=== PATIENT | male | born 1945 | race Caucasian/White ===

== ENCOUNTER → 2016-11-21 | Outpatient (CLI) | payer BC ==
[~2016-11-21] MED LIST: ACYC-251 PO; ALBUAER19 INH; ATOR10TA88 PO; BETACAROTENE PO; BIMA0.01 OPB; CHOL400T PO; CLON1TAB3 PO; CO Q 10 PO; GLUCOSAMINE PO; HYDR-3983 PO; LETHICIN PO; OMEG10007 PO; SERT1TAB68 PO; ZINC PO; [UNRECOGNIZED DRUG - OTHER] PO; [UNRECOGNIZED DRUG - OTHER] PO
[2016-11-21 10:59] LABS: ALT/SGPT 35 U/L (12-78); AST/SGOT 19 U/L (15-37); BLOOD UREA NITROGEN 16 mg/dl (7-18); BUN/CREATININE RATIO 17.6 (10-20); CALCIUM 8.8 mg/dl (8.5-10.1); CARBON DIOXIDE 30 mmol/L (21-32); CHLORIDE 106 mmol/L (98-107); GLUCOSE 91 mg/dl (70-99); POTASSIUM 4.2 mmol/L (3.5-5.1); SODIUM 137 mmol/L (136-145)
[2016-11-21 11:01] LABS: ALB/GLOB RATIO 1.3 (0.9-2); ALKALINE PHOSPHATASE 67 U/L (45-117); CHOLESTEROL 174 mg/dl (0-200); CHOLESTEROL/HDL RATIO 3.9; HDL CHOLESTEROL 45 mg/dl; LDL CHOLESTEROL CALCULATED 77 mg/dl; TRIGLYCERIDES 260 mg/dl (0-150); VERY LOW DENSITY LIPOPROT CALC 52 mg/dl
== END | disposition home or self-care (01) ==
LOC: C.LAB1850 09:14
PROVIDERS: ATTEND Nurse Practitioner Family
DX: E78.5 Hyperlipidemia, unspecified (principal); K21.9 Gastro-esophageal reflux disease without esophagitis; E55.9 Vitamin D deficiency, unspecified

== ENCOUNTER → 2017-01-15 | Outpatient (CLI) | payer BC | END | disposition home or self-care (01) | LOC: C.LAB1850 14:05 | PROVIDERS: ATTEND Urology | DX: N40.3 Nodular prostate with lower urinary tract symptoms (principal) ==

== ENCOUNTER 2017-03-09 08:20 | Observation (INO) | payer BC ==
[2017-02-19 08:58] VITALS: BMI 26.0
--- NOTE | 2017-02-19 09:30 | PAT Medication Instructions ---
Service Date Feb 19, 2017. Current Home Medication List Acetaminophen (Tylenol), 500-750 MG PO PRN Acyclovir (Zovirax), 800 MG PO TID PRN Albuterol Hfa (Ventolin Hfa), 1-2 PUFFS INH PRN Alprazolam (Xanax), 0.25 MG PO BID PRN for RN Ampicillin (Ampicillin), 500 MG PO UD Atorvastatin (Lipitor), 10 MG PO HS Brimonidine Tartrate (Alphagan P Oph), 1 DROP OP Q12H Ergocalciferol (Vitamin D 16346 Unit), 1 TAB PO WK Fish Oil ([employer] [place]-3), 1 CAP PO BID Probiotic Product (Probiotic), 1 TAB PO QPM Ranitidine (Zantac), 150 MG PO BID PRN for PRN Sertraline Hcl (Zoloft), 50 MG PO HS Timolol Maleate (Ophth) (Timoptic), 1 DROP OPB Q12H Tramadol (Ultram), 5-100 MG PO Q4H PRN for RN [Betacarotene], 1 TAB PO PRN [Co Q 10], 1 TAB PO QAM [Glucosamine], 1 TAB PO QAM [Glutamine], 1 TAB PO QAM [Lethicin], 1 TAB PO PRN [Resvertrol], 1 TAB PO QAM [Zinc], 1 TAB PO PRN Medication Instructions For Your Scheduled Surgery - Hold the following medications 2 weeks prior to surgery: [Betacarotene], 1 TAB PO PRN [Co Q 10], 1 TAB PO QAM [Glucosamine], 1 TAB PO QAM [Glutamine], 1 TAB PO QAM [Lethicin], 1 TAB PO PRN [Resvertrol], 1 TAB PO QAM Fish Oil ([employer] [place]-3), 1 CAP PO BID - Hold the following medications the morning of surgery: [Zinc], 1 TAB PO PRN - Take the following medications the morning of surgery with a sip of water OTHERWISE NOTHING TO EAT OR DRINK AFTER MIDNIGHT: Timolol Maleate (Ophth) (Timoptic), 1 DROP OPB Q12H Tramadol (Ultram), 5-100 MG PO Q4H PRN (may take if needed up to 4 hours prior to surgery) Brimonidine Tartrate (Alphagan P Oph), 1 DROP OP Q12H Albuterol Hfa (Ventolin Hfa), 1-2 PUFFS INH PRN (use if needed; BRING TO HOSPITAL) Alprazolam (Xanax), 0.25 MG PO BID PRN Acetaminophen (Tylenol), 500-750 MG PO PRN (may take if needed up to 4 hours prior to surgery) Acyclovir (Zovirax), 800 MG PO TID PRN Ranitidine (Zantac), 150 MG PO BID PRN for PRN - Take the following medications as scheduled the night before surgery: Atorvastatin (Lipitor), 10 MG PO HS Timolol Maleate (Ophth) (Timoptic), 1 DROP OPB Q12H Tramadol (Ultram), 5-100 MG PO Q4H PRN for RN Brimonidine Tartrate (Alphagan P Oph), 1 DROP OP Q12H Albuterol Hfa (Ventolin Hfa), 1-2 PUFFS INH PRN Alprazolam (Xanax), 0.25 MG PO BID PRN Acetaminophen (Tylenol), 500-750 MG PO PRN Acyclovir (Zovirax), 800 MG PO TID PRN Sertraline Hcl (Zoloft), 50 MG PO HS Probiotic Product (Probiotic), 1 TAB PO QPM Ranitidine (Zantac), 150 MG PO BID PRN for PRN If you have any questions please call us at [phone] or [phone] or [phone]
[2017-02-19 10:36] LABS: BASO % 0.3 %; BASO ABS # 0.02 K/uL (0-0.2); COMPLETE YES; EOS % 6.1 %; HEMATOCRIT 39.7 % (42-52); IG% 0.3 %; LYMPH % 35.5 %; LYMPH ABS # 2.11 K/uL (1.2-3.4); MEAN CELL VOLUME 85.9 fL (80-100); MEAN CORPUSCULAR HEMOGLOBIN 28.6 pg (25-34); MEAN CORPUSCULAR HGB CONC 33.2 g/dl (32-36); MEAN PLATELET VOLUME 9.7 fL (7.4-10.4); MONO % 7.2 %; NEUT % 50.6 %; PLATELET COUNT 214 K/uL (130-400); RED BLOOD COUNT 4.62 M/uL (4.7-6.1); WHITE BLOOD COUNT 5.94 K/uL (4.8-10.8)
[2017-02-19 10:45] LABS: BUN/CREATININE RATIO 18.2 (10-20); CALCIUM 8.7 mg/dl (8.5-10.1); CREATININE 0.91 mg/dl (0.60-1.40); POTASSIUM 3.8 mmol/L (3.5-5.1)
[~2017-03-09] VITALS: Ht 172.7 cm; Wt 78.6 kg
[~2017-03-09 08:20] MED LIST changes: +ACET-1256 PO; +ACYC-223 PO; -ACYC-251 PO; -ALBUAER19 INH; +ALPR-411 PO; +AMPI500C9 PO; +ATOR10TA82 PO; -ATOR10TA88 PO; -BIMA0.01 OPB; +BRIM0.1S OP; +CEFAZOLIN 2000MG IV PUSH 10 ML IV SCH; -CHOL400T PO; -CLON1TAB3 PO; +ERGO500011 PO; +GLUTAMINE PO; -HYDR-3983 PO; +LACTATED RINGER'S 1000ML 1,000 ML IV SCH; +MISCCAP80 PO; +TIMO0.2528 OPB; +TRAM-10 PO; +VNTHFA/IN INH; +ZNTT/150 PO; +[UNRECOGNIZED DRUG - OTHER] PO; -[UNRECOGNIZED DRUG - OTHER] PO; -[UNRECOGNIZED DRUG - OTHER] PO
[2017-03-09 08:44] VITALS: BP 116/69; PULSE 64; TEMP 36.7; O2SAT 97; Ht 172.7 cm; Wt 78.6 kg
[2017-03-09] MEDS ORDERED: PROPOFOL IV EMULSION 10 MG/ML 20 ML VIAL IV ONE (09:58)
[2017-03-09] MEDS ORDERED: LIDOCAINE HCL 2% 2 ML VIAL (20MG/ML) ONE (09:58)
[2017-03-09] MEDS ORDERED: ONDANSETRON INJ 2 MG/ML 2 ML VIAL ONE (09:58)
[2017-03-09] MEDS ORDERED: DEXAMETHASONE SOD INJ 4 MG/ML VIAL ONE (09:58)
[2017-03-09] MEDS ORDERED: FENTANYL CITRATE INJ 50 MCG/1 ML 2 ML VIAL ONE (09:59)
[2017-03-09] MEDS ORDERED: MIDAZOLAM HCL 1 MG/ML 2ML VIAL ONE (09:59)
[2017-03-09] MEDS ORDERED: MEPERIDINE HCL 25 MG/ML CARP IV PRN (10:00)
[2017-03-09] MEDS ORDERED: ATROPINE SULFATE 0.1 MG/ML 5ML SYR IV PRN (10:00)
[2017-03-09] MEDS ORDERED: EpHEDrine SULFATE INJ 50 MG/ML AMP IV PRN (10:00)
[2017-03-09] MEDS ORDERED: HYDROmorphone INJ 1 MG/ML SYR IV PRN (10:00)
[2017-03-09] MEDS ORDERED: LABETALOL HCL IV 5 MG/ML 20ML IV PRN (10:00)
[2017-03-09] MEDS ORDERED: ONDANSETRON INJ 2 MG/ML 2 ML VIAL IV PRN ×2 (10:00→13:00)
[2017-03-09] MEDS ORDERED: FENTANYL CITRATE INJ 50 MCG/1 ML 2 ML VIAL IV PRN (10:00)
--- NOTE | 2017-03-09 10:00 | History & Physical Bridge Note ---
H&P Re-Evaluation Bridge Note: I have examined the patient, reviewed the History & Physical and in the interval since the performance of the History & Physical I have noted the following changes of clinical significance: No changes noted
[2017-03-09] MEDS ORDERED: CEFAZOLIN SOD 1 GM VIAL ONE (11:12)
[2017-03-09] MEDS ORDERED: LIDOCAINE HCL 1% 20 ML VIAL ONE (11:12)
[2017-03-09] MEDS ORDERED: BUPIVACAINE 0.5 % 5 MG/1 ML MPF 30ML VIAL ONE (11:12)
[2017-03-09] MEDS ORDERED: MoRPHine SULFATE 4 MG/ML 1 ML CARP\\VIAL IV PRN (13:00)
[2017-03-09] MEDS ORDERED: ALPRAZOLAM 0.25 MG TAB PO PRN (13:00)
[2017-03-09] MEDS ORDERED: ALBUTEROL HFA 8 GM INHALER INH PRN (13:00)
[2017-03-09] MEDS ORDERED: MoRPHine SULFATE 2 MG/ML CARP IV PRN (13:00)
[2017-03-09] MEDS ORDERED: PROMETHAZINE HCL INJ 25 MG in SODIUM CHLORIDE 0.9% 50ML 50 ML IV PRN (13:00)
[2017-03-09] MEDS ORDERED: HYDROCODONE/ACETAMOPHEN 5/325MG TAB PO PRN (13:00)
--- NOTE | 2017-03-09 13:08 | [facility] Operative Report ---
Operative Report Operative Date Mar 09, 2017. Pre-Operative Diagnosis Left Recurrent Inguinal Hernia Post-Operative Diagnosis Same as preop Procedure(s) Performed Left Laparoscopic Recurrent Inguinal Hernia Repair Surgeon Dr. Cortés Offline Editor Surgeon(s) Walter Walker PA-C Estimated Blood Loss 20 ml Findings direct and indirect defects w/ lipomas Specimens None per surgeon Anesthesia gen Complication(s) None Disposition Recovery Room / PACU I attest to the content of the Intraoperative Record and any orders documented therein. Any exceptions are noted below.
--- NOTE | 2017-03-09 13:38 | OPERATIVE REPORT ---
DATE OF OPERATION: 03/09/2017 NAME OF OPERATION: Laparoscopic repair of recurrent left inguinal hernia. PREOPERATIVE DIAGNOSIS: Recurrent left inguinal hernia. POSTOPERATIVE DIAGNOSIS: Same. STAFF SURGEON: Dr. John Cortés. ELECTRIC RAZOR MECHANIC: Walter Walker PA-C. ANESTHESIA: General. FINDINGS: The patient had a recurrent left inguinal hernia with large direct defect and smaller indirect defect with lipomas. DESCRIPTION OF PROCEDURE: The patient was brought into the operating room and placed on the operating table in the supine position. His abdomen was prepped and draped in the usual fashion. De Luna catheter, pneumatic stockings and orogastric tube were placed. Initially, incision was made in the right mid abdomen, carrying dissection down, identifying the fascia, placing a Veress needle, and producing pneumoperitoneum. This was because the patient had had prior mesh placed in the mid abdomen. Then, a 5-mm port was placed. A 5-mm scope was used. A second 5-mm port placed in the left mid abdomen and then an 11-mm port placed in the central abdomen above the area of the mesh. On inspection, the patient did have what appeared to be a direct inguinal hernia. The peritoneum was taken down superior to this from medial to lateral, identifying a direct inguinal hernia and then a smaller indirect sac. Because of the patient's prior hernia repair x2, the peritoneum was adherent to these areas and I felt that a piece of Surgimesh was appropriate as I was unable to cover with the peritoneum. Surgimesh was trimmed and then placed into the abdomen. The polypropylene was toward the fascia and the silicone was toward the bowel. It was placed and covering the defects very well and then secured using absorbable tacks. The pneumoperitoneum was reduced. All ports removed. The 11-mm site closed by reapproximating the fascia using 0 Vicryl suture, 2-0 plain catgut suture was used to reapproximate the subcutaneous tissue and then the skin was reapproximated using 5-0 Prolene suture. The patient was transferred to recovery room in stable condition. The patient had a De Luna catheter during the operation and into the recovery room, the plan was to remove it prior to transfer to the floor. During the operation, my health education assistant helped with the port placement, exposure within the abdomen and then port site closure. I attest to the content of the Intraoperative Record and any orders documented therein. Any exception s are noted below.
[2017-03-09 14:15] VITALS: BP 110/70; PULSE 58; TEMP 36.2; O2SAT 98
--- NOTE | 2017-03-09 14:15 | Anesthesiology Progress Note ---
Anesthesia Post Op Note Date & Time Mar 09, 2017 at 14:15 Vital Signs Pain Intensity: 0 Vital Signs Past 12 Hours Date Time Temp Pulse Resp B/P (MAP) Pulse Ox O2 Delivery O2 Flow Rate FiO2 03/09/17 13:50 55 14 105/57 100 Nasal Cannula 3 03/09/17 13:40 36.6 53 14 107/69 99 Nasal Cannula 3 03/09/17 13:30 55 14 106/66 100 Nasal Cannula 3 03/09/17 13:20 54 14 110/67 100 Oxymask 5 03/09/17 13:10 54 12 113/68 100 Oxymask 10 03/09/17 13:04 36.8 64 12 122/75 98 Oxymask 10 03/09/17 08:44 36.7 64 20 116/69 (85) 97 Room Air Notes Mental Status: alert / awake / arousable, participated in evaluation Pt Amnestic to Procedure: Yes Nausea / Vomiting: adequately controlled Pain: adequately controlled Airway Patency, RR, SpO2: stable & adequate BP & HR: stable & adequate Hydration State: stable & adequate Anesthetic Complications: no major complications apparent
[2017-03-09 14:45] VITALS: BP 116/78; PULSE 68; TEMP 36.2; O2SAT 99
--- NOTE | 2017-03-09 14:55 | Medical Consult ---
Consultation Note Date of Service Mar 09, 2017. Consultation Note Dr. Cortés consult hospitalist for medical management, [id number]
[2017-03-09] MEDS: LACTATED RINGER'S 1000ML 1,000 ML IV SCH (15:00)
[2017-03-09 15:12] VITALS: BP 120/76; PULSE 74; TEMP 36.7; O2SAT 99
--- NOTE | 2017-03-09 15:18 | INTERNAL MEDICINE CONSULTATION ---
DATE OF ADMISSION: 03/09/2017 This is a consultation H&P, 25 minutes. PHYSICIAN REQUESTING FOR THE CONSULTATION: Dr. Cortés. REASON FOR CONSULTATION: Postop medical management after left inguinal hernia repair. HISTORY OF PRESENT ILLNESS: The patient is a 71-year-old white male with history of anxiety, osteoarthritis, lower back pain, bronchitis, dyslipidemia, asthma, also has glaucoma, coming to the hospital at Dr. Cortés's service. Dr. Cortés had left inguinal hernia repaired this morning. The patient tolerated well. He is awake, alert, and orientated, pain is well controlled. Denied fever or chill; denied cough or sputum; denied nausea, vomiting; denied abdominal pain, diarrhea, or constipation; denied dysuria, urgency, or frequencies. Denies skin rashes. Denied facial droop, slurry speeches. ALLERGIES: No known drug allergies. PAST MEDICAL HISTORY: Like I mentioned in the above include anxiety, osteoarthritis, lower back pain, bronchitis, dyslipidemia and asthma. PREVIOUS SURGICAL HISTORY: Include abdominal surgery for incarcerated bowel x2 and hernia repairing, cataract surgery in 2009, right knee arthroscopy in 2005, left knee arthroscopy in 2010, left knee TKA in 2011. ALLERGIES: No known drug allergies. FAMILY HISTORY: Significant for heart disease, liver cancer and Parkinson disease. SOCIAL HISTORY: The patient is [employer] professor, . Denied alcohol abuse disorder, denied tobacco abuse disorder, denied illicit drug abuse. REVIEW OF SYSTEMS: Please see HPI, otherwise 14 points organ system review were negative. MEDICATIONS: Currently taking at home which includes; 1. Albuterol inhaler 1-2 puffs as needed for shortness of breath. 2. Xanax 0.5 mg tablets 0.25 mg p.o. b.i.d. p.r.n. for anxiety. 3. Lipitor 10 mg p.o. at bedtime. 4. Alphagan 0.1% one drop OP q. 12 hours. 5. Zoloft 50 mg p.o. at bedtime. 6. Timolol 0.25% one drop OPB q. 12 hours. PHYSICAL EXAMINATION: VITAL SIGNS: Temperature is 36.2, pulse 58, respiration rate 18, blood pressure 110/70, pulse ox was 98% on 2 liters. GENERAL: The patient is a white male, awake, alert and orientated, conversational, follows all commands. HEAD: Normocephalic. EYES: Pupils equal, round responds to light. EARS: Normal. NOSE: Normal. NECK: Supple. Thyroid no enlargement. Trachea in the midline. LUNGS: Decreased breathing sounds. There was no wheezing, rhonchi or crackles. HEART: Regular rhythm, S1, S2, has no murmur, no gallop, no rub. ABDOMEN: Soft, nontender. Bowel sound was positive. GENITOURINARY AND RECTAL: Deferred. Bilateral CVA was nontender. BILATERAL LOWER EXTREMITIES: No clubbing, cyanosis. NEUROLOGICAL EVALUATION: Cranial nerve through XII was intact. There was no local deficits. SKIN: Has no rashes. LABORATORY STUDIES: Recent labs in 02/19/2017: WBC 5.9, hemoglobin 13, platelets 214. Sodium 140, BUN 17, creatinine 0.9. Calcium 8.7. IMAGING STUDIES: Not done. EKGs on 02/19/2017, which shows normal sinus rhythm, bradycardia, heart rate at 54 beats per minute. ASSESSMENT AND PLAN: A 71-year-old white male with the conditions below: 1. Left inguinal hernia repair. This will be per primary team, pain management, DVT prophylaxis, PT, OT and discharge plan will be per primary team too. 2. History of asthma, dyslipidemia, glaucoma, anxiety, currently is stable. We will continue home medication. Thank you for the chance to involve in the care of the patient. We will continue to follow up while patient in the hospital. [place]
[2017-03-09] MEDS ORDERED: IV FLUIDS COMPLETED PRN (15:45)
[2017-03-09 17:11] VITALS: BP 119/78; PULSE 74; TEMP 36.8; O2SAT 96
[2017-03-09] MEDS: CEFAZOLIN IV 1,000 MG in SYRINGE 0 ML IV SCH ×2 (17:53→23:23)
[2017-03-09] MEDS: HYDROCODONE/ACETAMOPHEN 5/325MG TAB PO PRN ×2 (18:55→23:06)
[2017-03-09] MEDS ORDERED: NURSING DECISION MEDICATION ORDER SCH (20:15)
[2017-03-09] MEDS: TIMOLOL MALEATE 0.25% OP SOLN 5 ML BTL OPB SCH (20:41)
[2017-03-09] MEDS: Pt's Own Med: BRIMONIDINE TARTRATE 0.1% OPH SOLN OPB SCH (20:41)
[2017-03-09] MEDS ORDERED: COUGH DROP (SUGAR FREE) LOZ 24 LOZ/1 BOX PO PRN (20:45)
[2017-03-09] MEDS ORDERED: ATORVASTATIN 10 MG TAB PO SCH (21:00)
[2017-03-09] MEDS ORDERED: SERTRALINE HCL 50 MG TAB PO SCH (21:00)
[2017-03-09 23:18] VITALS: BP 120/74; PULSE 67; TEMP 36.9; O2SAT 93
[2017-03-10 02:30] VITALS: BP 116/71; PULSE 55; TEMP 36.8; O2SAT 96
[2017-03-10] MEDS: LACTATED RINGER'S 1000ML 1,000 ML IV SCH (05:14)
[2017-03-10] MEDS: CEFAZOLIN IV 1,000 MG in SYRINGE 0 ML IV SCH (05:22)
[2017-03-10] MEDS ORDERED: CEPH500C2 PO (05:31)
[2017-03-10] MEDS ORDERED: HYDR-5688 PO (05:31)
--- NOTE | 2017-03-10 05:33 | Discharge Instructions ---
Discharge Instructions Date of Service Mar 10, 2017. Admission Reason for Admission: Recurrent Left Inguinal Hernia Discharge Discharge Diagnosis / Problem: recurrent Lt inguinal hernia Discharge Goals Goal(s): Decrease discomfort, Improve function, Improve disease control Activity Recommendations Activity Limitations: as noted below Lifting Limitations: no more than 25 pounds (for 4 weeks) Exercise/Sports Limitations: until after follow-up appointment May Resume Sexual Activity: when tolerated Shower/Bathe: tomorrow Driving or Machine Use: resume 3 days after discharge . Instructions / Follow-Up Instructions / Follow-Up SPECIAL CARE INSTRUCTIONS: * Cover incisions and change daily for comfort/drainage. * May use ibuprofen for pain as tolerated. * Expect some swelling and bruising. Call your doctor if: * Temperature above 101 degrees * Pain not relieved by pain medicine ordered * There is increased drainage or redness from any incision * You have any unanswered questions or concerns [phone]. FOLLOW UP VISIT: If not already scheduled, please call the office for a follow-up visit. for next week- some suture removal OFFICE PHONE NUMBER: Dr. Cortés Office Current Hospital Diet Patient's current hospital diet: Regular Diet Discharge Diet Recommended Diet: Regular Diet Procedures Procedures Performed: Left Laparoscopic Recurrent Inguinal Hernia Repair Pending Studies Studies pending at discharge: no Medical Emergencies . Who to Call and When: Medical Emergencies: If at any time you feel your situation is an emergency, please call 911 immediately. . Non-Emergent Contact Non-Emergency issues call your: Primary Care Provider, Surgeon . "Provider Documentation" section prepared by John Cortés. . VTE Core Measure Inpt VTE Proph given/why not?: SCD's
--- NOTE | 2017-03-10 06:38 | DISCHARGE SUMMARY ---
PRINCIPAL DIAGNOSIS: Recurrent left inguinal hernia. PROCEDURES: The patient underwent laparoscopic recurrent left inguinal hernia repair. HISTORY OF PRESENT ILLNESS: The patient is a 71-year-old male with recurrent left inguinal hernia for elective repair. HOSPITAL COURSE: The patient was brought into the hospital on 03/09/2017 where he underwent laparoscopic recurrent left inguinal hernia repair with mesh. The patient has done quite well overnight and is felt stable for discharge home today to be followed in the surgical clinic next week.
[2017-03-10 07:11] VITALS: BP 138/86; PULSE 56; TEMP 36.8; O2SAT 98
[2017-03-10 08:20] LABS: BASO % 0.1 %; BASO ABS # 0.01 K/uL (0-0.2); COMPLETE YES; HEMATOCRIT 39.3 % (42-52); IG% 0.2 %; LYMPH % 12.8 %; LYMPH ABS # 1.49 K/uL (1.2-3.4); MEAN CELL VOLUME 85.4 fL (80-100); MEAN CORPUSCULAR HEMOGLOBIN 30.4 pg (25-34); MEAN CORPUSCULAR HGB CONC 35.6 g/dl (32-36); MEAN PLATELET VOLUME 9.5 fL (7.4-10.4); MONO % 6.8 %; NEUT % 80.1 %; PLATELET COUNT 235 K/uL (130-400); WHITE BLOOD COUNT 11.64 K/uL (4.8-10.8)
[2017-03-10] MEDS: Pt's Own Med: BRIMONIDINE TARTRATE 0.1% OPH SOLN OPB SCH (08:20)
[2017-03-10] MEDS: TIMOLOL MALEATE 0.25% OP SOLN 5 ML BTL OPB SCH (08:21)
[2017-03-10] MEDS: HYDROCODONE/ACETAMOPHEN 5/325MG TAB PO PRN (08:23)
[2017-03-10 08:54] LABS: BUN/CREATININE RATIO 16.1 (10-20); CALCIUM 9.4 mg/dl (8.5-10.1); CREATININE 0.9 mg/dl (0.60-1.40); MAGNESIUM 2.1 mg/dl (1.8-2.4); POTASSIUM 3.6 mmol/L (3.5-5.1)
--- NOTE | 2017-03-10 09:04 | Anesthesiology Progress Note ---
Anesthesia Post Op Note Date & Time Mar 10, 2017 at 09:03 Vital Signs Vital Signs Past 12 Hours Date Time Temp Pulse Resp B/P (MAP) Pulse Ox O2 Delivery O2 Flow Rate FiO2 03/10/17 07:11 36.8 56 18 138/86 (103) 98 Room Air 03/10/17 02:30 36.8 55 16 116/71 (86) 96 Room Air 03/09/17 23:18 36.9 67 15 120/74 (89) 93 Room Air 03/09/17 23:15 Room Air
[2017-03-10 10:34] VITALS: BP 138/86; PULSE 56; TEMP 36.8; O2SAT 98
== END 2017-03-10 14:00 | disposition home or self-care (01) ==
LOC: C.ACU 08:20 → C.MSW 13:07 → ENRESERV 13:31
PROVIDERS: ADMIT Surgery; ATTEND Surgery
DX: K40.91 Unilateral inguinal hernia, without obstruction or gangrene, recurrent (principal); I35.1 Nonrheumatic aortic (valve) insufficiency; J45.909 Unspecified asthma, uncomplicated; F32.9 Major depressive disorder, single episode, unspecified; K21.9 Gastro-esophageal reflux disease without esophagitis; F41.1 Generalized anxiety disorder; H40.9 Unspecified glaucoma; H91.90 Unspecified hearing loss, unspecified ear; E78.5 Hyperlipidemia, unspecified; E55.9 Vitamin D deficiency, unspecified; Z86.19 Personal history of other infectious and parasitic diseases; Z96.659 Presence of unspecified artificial knee joint; Z82.49 Family history of ischemic heart disease and other diseases of the circulatory system; Z82.0 Family history of epilepsy and other diseases of the nervous system; Z80.3 Family history of malignant neoplasm of breast; N40.0 Benign prostatic hyperplasia without lower urinary tract symptoms; Z87.891 Personal history of nicotine dependence; M19.90 Unspecified osteoarthritis, unspecified site

== ENCOUNTER → 2017-07-13 | Outpatient (CLI) | payer BC ==
[~2017-07-13] MED LIST changes: -CEFAZOLIN 2000MG IV PUSH 10 ML IV SCH; +CEPH500C2 PO; +HYDR-5688 PO; -LACTATED RINGER'S 1000ML 1,000 ML IV SCH; +RANI150T85 PO; -TIMO0.2528 OPB; +TIMO0.254 OPB; -ZNTT/150 PO
[2017-07-13 13:51] LABS: BLOOD UREA NITROGEN 17 mg/dl (7-18); CREATININE 0.99 mg/dl (0.60-1.40)
== END | disposition home or self-care (01) ==
LOC: C.LAB1850 12:30
DX: H90.3 Sensorineural hearing loss, bilateral (principal)

== ENCOUNTER → 2017-07-30 | Outpatient (CLI) | payer BC ==
[~2017-07-30] MED LIST changes: +GADAVIST IV PRN
--- NOTE | 2017-07-30 09:03 | DIAGNOSTIC IMAGING REPORT ---
MRI OF THE BRAIN AND IACS WITHOUT AND WITH IV CONTRAST CLINICAL HISTORY: TINNITUS RT EAR, 388.30, H93.11 COMPARISON STUDY: No previous studies for comparison. TECHNIQUE: MRI of the brain was performed from the vertex to the skull base utilizing various T1 and T2 weighted sequences. Following the IV administration of 7.5 mL of Gadavist contrast, additional enhanced images were obtained. FINDINGS: Sagittal T1, axial diffusion, proton density and T2 weighted axial, coronal FLAIR, and pre and post axial T1-weighted images were acquired. These were supplemented with post gadolinium coronal T1 weighted images. No intra or extra-axial mass lesions are visualized. Axial diffusion-weighted images reveal no evidence of acute or subacute infarction. There is no evidence of ventricular dilatation. Proton density T2-weighted and FLAIR images reveal no significant intraparenchymal signal abnormalities given the patient's age. There are no abnormal flow voids. There is no evidence of pathologic enhancement. There are no abnormal cerebellopontine angle masses. The 7th and 8th nerve complexes appear normal bilaterally. IMPRESSION: Normal MRI of the brain for age Electronically signed by: Vaibhav Boudreaux M.D. 07/30/2017 9:01 AM Dictated Date/Time: 07/30/2017 8:59 AM
== END | disposition home or self-care (01) ==
LOC: C.MRI 07-20 16:25
DX: H93.11 Tinnitus, right ear (principal)